=== PATIENT | male | born 1980 | race Caucasian/White ===

== ENCOUNTER 2022-10-08 04:47 | Emergency (ER) | payer SELFPAY ==
[~2022-10-08] VITALS: Ht 182.8 cm; Wt 75.9 kg
--- NOTE | 2022-10-08 04:55 | ED Integumentary General ---
General Chief Complaint: Skin/Wound Problems Stated Complaint: IN NEED OF FOOT CARE (HOMELESS) History of Present Illness Date Seen by Provider: Oct 08, 2022 Time Seen by Provider: 04:55 Initial Comments 41-year-old male with PMH of psych disorder, and who is homeless, is here with complaints of left heel wound and pain which has been going on for some time with worsening of wound condition. Patient walks around a lot all day since he is homeless. Patient states wound started as a blister with his pain level currently at 2/10. Patient does wear shoes and socks and does not always get an opportunity for proper hygiene. Patient states that [facility] and was discharged with medication, however patient does not believe he needs that medication and stopped taking it. Patient has clear speech and thought patterns, and is able to express himself well. Denies fever, chills, history of diabetes, bleeding from wound. Allergies and Home Medications Allergies Coded Allergies: No Known Drug Allergies (Unverified , 10/08/22) Patient Home Medication List Home Medication List Reviewed: Yes No Active Prescriptions or Reported Meds Review of Systems Review of Systems Constitutional: no symptoms reported EENTM: no symptoms reported Respiratory: no symptoms reported Cardiovascular: no symptoms reported Gastrointestinal: no symptoms reported Genitourinary: no symptoms reported Musculoskeletal: other Skin: lesions Psychiatric/Neurological: No Symptoms Reported Endocrine: No Symptoms Reported Hematologic/Lymphatic: No Symptoms Reported Physical Exam Vital Signs Vital Signs - First Documented 10/08/22 04:55 Temp 36.7 Pulse 85 Resp 20 B/P (MAP) 115/85 (95) Pulse Ox 98 O2 Delivery Room Air Capillary Refill : General Appearance: WD/WN, no apparent distress HEENT: PERRL/EOMI Neck: full range of motion Extremities: normal range of motion, no pedal edema, no calf tenderness, normal capillary refill, other (LEFT FOOT: heel shows large broken blister that is approximately 2 inch diameter . Poor feet hygiene. NV bundle intact, no signs of infection at this time.) Neurologic/Psychiatric: no motor/sensory deficits, alert, oriented x 3 Skin Problem Location: lower extremities Lymphatic: no adenopathy Progress/Results/Core Measures Results/Orders Vital Signs/I&O 10/08/22 04:55 Temp 36.7 Pulse 85 Resp 20 B/P (MAP) 115/85 (95) Pulse Ox 98 O2 Delivery Room Air Progress Progress Note : Progress Note LEFT HEEL BLISTER: - Feet soaked in soap and water in basin and cleaned with Hibi-cleanse. Bandage dressing applied with Bactroban. Bactroban dispensed from ER as well. - Pt normally washes his feet in public toilets and he is advised NOT to do that. - Since pt is homeless and not completely compliant due to social determinants of homelessness and Psych disorder, sent pt with basin to wash his feet so that he does not have to wash in the toilet , and Bactroban ointment. - Advised to wash and dry his socks everyday , or at least every other day. Pt s tates he has one more pair of clean shoes and socks. -Pt advised to stop smoking since this delays healing. - Pt will not be following up with PCP due to his lack of interest and means to do so. Departure Impression Primary Impression: Blister of left heel Qualified Codes: S90.822A - Blister (nonthermal), left foot, initial encounter Additional Impression: Homeless single person Disposition: 01 HOME, SELF-CARE Condition: Improved Departure-Patient Inst. Referrals: NO,LOCAL PHYSICIAN (PCP) Primary Care Physician Patient Instructions: Blisters Add. Discharge Instructions: - Pt normally washes his feet in public toilets and he is advised NOT to do that. - Pt discharged with basin to wash his feet so that he does not have to wash in the toilet , and Bactroban ointment. - Advised to wash and dry his socks everyday , or at least every other day. Pt states he has one more pair of clean shoes and socks. -Pt advised to stop smoking since this delays healing. All discharge instructions reviewed with patient and/or family. Voiced underst anding. Scripts No Active Prescriptions or Reported Meds DERIC AYALA MD Oct 08, 2022 04:55
[2022-10-08] MEDS ORDERED: RX-MUPIROCIN (BACTROBAN) 2% OINT 22 GM TUBE TOP STA (05:33)
[2022-10-08 05:58] VITALS: BP 115/85
== END 2022-10-08 05:58 | disposition home or self-care (01) ==
LOC: ER FS 04:52
DX: S90.822A Blister (nonthermal), left foot, initial encounter (principal); F17.210 Nicotine dependence, cigarettes, uncomplicated; Z59.00 Homelessness unspecified; Z28.310 Unvaccinated for COVID-19; X58.XXXA Exposure to other specified factors, initial encounter